=== PATIENT | female | born 1970 | race Caucasian/White ===

== ENCOUNTER 2020-03-21 17:49 | Emergency (ER) | payer OTHER, SELFPAY ==
--- NOTE | ~2020-03-21 | CT_ITS ---
EXAMINATION: CT lumbar spine wo con DATE: 03/21/2020 18:54 INDICATION: Low back pain post fall TECHNIQUE: Computed tomography (CT) of the lumbar spine was performed without intravenous contrast. A utomated exposure control and iterative reconstruction technique were employed. The dose-length produ ct was 1282.32 mGy-cm. COMPARISON: None FINDINGS: There are transitional thoracolumbar and lumbosacral segments. For purposes of this report the thorac olumbar segment will be designated L1 with small right-sided hypoplastic riblet and with an unfused l eft-sided transverse process. There The transitional lumbosacral segment will be designated S1 with a rudimentary S1-S2 disc space. There are 4 intervening nonrib-bearing lumbar segments L2-L5. 4 mm anterolisthesis L5 on S1 with mild disc height loss and severe bilateral facet osteoarthritis. T here is also a disc bulge at this level contributing to mild central canal and moderate bilateral gabriela ral foraminal stenosis. Vertebral body heights and remaining disc heights are normal. No fractures. T here is a disc bulge at L4-L5 along with moderate bilateral facet osteoarthritis and hypertrophy of t he ligamentum flavum resulting mild to moderate central canal and moderate bilateral neural foraminal stenosis at this level. Mild facet osteoarthritis without significant neural foraminal or central ca nal stenosis in the more cephalad lumbar spine. Cholecystectomy clips are seen at the gallbladder fos sa. Small amount of likely physiologic free fluid in the cul-de-sac. IMPRESSION: 1. Moderate lower lumbar spondylosis. No acute osseous abnormality. Reviewed, dictated and finalized at location A. TRICIAN YARD
--- NOTE | ~2020-03-21 | CT_ITS ---
EXAMINATION: CT brain wo con DATE: 03/21/2020 18:53 INDICATION: Blunt trauma to the head post fall with posterior head pain TECHNIQUE: Computed tomography (CT) of the head was performed without intravenous contrast. Sagittal and coronal reconstructions were performed. The mA was adjusted according to patient size. Iterative reconstruction technique was employed. The dose-length product was 605.33 mGy-cm. COMPARISON: None FINDINGS: No fracture. No acute intracranial hemorrhage, acute infarction or abnormal extra axial fluid collect ion. Ventricles are normal and symmetric. No mass/mass effect. The orbits, paranasal sinuses and mast oid air cells are normal. IMPRESSION: 1. Normal head CT. Reviewed, dictated and finalized at location A. ENCE COORDINATOR IMPRESSION: 1. Normal head CT.
--- NOTE | ~2020-03-21 | CT_ITS ---
EXAMINATION: CT cervical spine wo con DATE: 03/21/2020 18:53 INDICATION: Fall with head injury TECHNIQUE: Computed tomography (CT) of the cervical spine was performed without intravenous contrast. Automated exposure control and iterative reconstruction technique were employed. The dose-length pro duct was 483.04 mGy-cm. COMPARISON: None FINDINGS: Anterior spinal fusion with anterior plate and screw fixation extending from C4 through C7. There is fusion across the C4-C5 and C5-C6 disc spaces. The C6-C7 disc space is narrowed with irregular endpla alexa but without solid osseous bridging. There is also osseous fusion across the C4-C5 and C5-C6 facet joints which is more advanced on the right. There is straightening of the normal cervical lordosis. Unfused vertebral body heights are normal. Moderate disc height loss at C3-C4 and mild disc height lo ss at C2-C3, C7-T1 and T1-T2. No acute fractures. 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 There is b ilateral mild to moderate facet osteoarthritis of the unfused cervical and upper thoracic facet joint s. Mild to moderate neural foraminal stenosis seen at the left at C6-C7 and C7-T1. Mild neural forami nal stenosis on the left at C4-C5 and C5-C6 and on the left at C7-T1. Cervical soft tissues are unrem arkable. Visualized airway and apices of the lungs are clear. IMPRESSION: 1. C4-C7 instrumented anterior spinal fusion with mild to moderate cervical spondylosis. No acute oss eous abnormality. Reviewed, dictated and finalized at location A. DIAN IMPRESSION: 1. C4-C7 instrumented anterior spinal fusion with mild to moderate cervical spo ndylosis. No acute osseous abnormality.
--- NOTE | ~2020-03-21 | XR_ITS ---
EXAMINATION: XR knee RT 3V DATE: 03/21/2020 18:59 INDICATION: Medial right knee pain post fall TECHNIQUE: Anteroposterior, oblique and crosstable lateral views of the right knee were obtained COMPARISON: None. FINDINGS: Alignment is normal. No fracture. Joint spaces appear relatively preserved on nonweightbearing imagi ng. No joint effusion/layering lipohemarthrosis. Small enthesophyte along the anterior patella. Soft tissues are unremarkable. IMPRESSION: 1. No right knee joint effusion or acute osseous abnormality. Reviewed, dictated and finalized at location A. [facility]
[2020-03-21 18:05] VITALS: BP 122/81; PULSE 60; RESP 18; TEMP 36.7; O2SAT 98
[2020-03-21] MEDS: MORPHINE SULFATE (*CRX) 2 MG/ML INJ IV PUSH (18:33)
--- NOTE | 2020-03-21 18:54 | ED.GENADULT ---
HPI - General Adult General Chief complaint: Fall Stated complaint: fall Time Seen by Provider: 03/21/20 18:00 Source: patient Mode of arrival: EMS Limitations: no limitations History of Present Illness HPI narrative: Patient presents with chief complaint of pain to the posterior aspect of her head, neck, and low back after slipping on her steps and hitting these areas along the steps. Patient states after falling she felt pain in her head and neck and was scared to move so she laid there and called EMS. She reports fusion in her cervical spine 5 years ago.She denies LOC, vomiting, changes in vision or hearing. Related Data Allergies Allergy/AdvReac Type Severity Reaction Status Date / Time No Known Allergies Allergy Verified 03/21/20 18:33 Review of Systems Review of Systems: Narrative: CONSTITUTIONAL: Denies fever, chills, or sweats. EYES: Denies visual changes, redness, or discharge. ENT: Denies rhinorrhea, congestion, sore throat, or otalgia. CARDIOVASCULAR: Denies chest pain, palpitations, or edema. RESPIRATORY: Denies cough or dyspnea. GASTROINTESTINAL: Denies abdominal pain, nausea, vomiting, or diarrhea. GENITOURINARY: Denies dysuria or hematuria. SKIN: Denies rash or itching. MUSCULOSKELETAL: Reports head, neck, and back pain Denies myalgia, or joint pain NEUROLOGIC: Denies headache, numbness, dizziness, or weakness. PSYCHIATRIC: Denies anxiety or depression. PMFSH Social History Social History Gender identity (if verbalized by the patient): Female Exam Narrative: Exam Narrative: GENERAL: Well-appearing, well-nourished. HEAD: Normocephalic, atraumatic.No hematomas or lacerations. EYES: PERRLA and EOMI. ENT: Nares clear, no rhinorrhea or epistaxis. Mucous membranes moist. Oropharynx without tonsillar hypertrophy exudate or other lesions. NECK: Ccollar in place. Patient reports pain. No radiation of pain to upper extremities. CHEST: Clear to auscultation. No respiratory distress. No wheezes rales or rhonchi HEART: Regular rate and rhythm. Normal peripheral pulses. BACK: Tender to lumbar spine. ABDOMEN: Soft, nontender, nondistended, normal active bowel sounds. No bruises noted. EXTREMITIES: Pain to anterior medial knee. Patient refuses ROM testing due to pain. No deformity. Pulses and cap refill intact bilaterally. No edema. SKIN: Warm, dry, no rash. NEURO: No focal deficits. Alert and oriented x3. Speech appropriate. Sensation intact. No saddle parasthesia. No loss of bowel or bladder function. PSYCH: Normal mood and affect. Course Vital Signs Vital signs: Vital Signs Temperature 98.1 F 03/21/20 18:05 Pulse Rate 60 03/21/20 18:05 Respiratory Rate 18 03/21/20 18:05 Blood Pressure 122/81 03/21/20 18:05 Pulse Oximetry 98 03/21/20 18:05 Temperature 98.1 F 03/21/20 18:05 Pulse Rate 60 03/21/20 18:05 Respiratory Rate 18 03/21/20 18:05 Blood Pressure 122/81 03/21/20 18:05 Pulse Oximetry 98 03/21/20 18:05 Medical Decision Making MDM Narrative Medical decision making narrative: Patient's imaging is negative for acute injury. Patient given care precautions and strain instructions. Patient instructed to follow-up with her primary care for reevaluation and further restrictions if needed. Patient is instructed to return to emergency department if she has any emergent symptoms. Differential Diagnosis Differential Diagnosis: CVA, fracture, sprain, strain Vital Signs Vital Signs: Vital Signs Temperature 98.1 F 03/21/20 18:05 Pulse Rate 60 03/21/20 18:05 Respiratory Rate 18 03/21/20 18:05 Blood Pressure 122/81 03/21/20 18:05 Pulse Oximetry 98 03/21/20 18:05 Temperature 98.1 F 03/21/20 18:05 Pulse Rate 60 03/21/20 18:05 Respiratory Rate 18 03/21/20 18:05 Blood Pressure 122/81 03/21/20 18:05 Pulse Oximetry 98 03/21/20 18:05 Imaging Data Radiologist's impression: ITS Impressions Head CT 03/21/20 19:01 IMPRESSION: 1. N
--- NOTE | 2020-03-21 19:48 | PC.NURSE ---
Patient's c-collar removed.
[2020-03-21] MEDS: KETOROLAC 15 MG/ML VIAL (*BKC) IV PUSH (20:22)
[2020-03-21 20:28] VITALS: BP 140/70; PULSE 60; RESP 16; O2SAT 98
== END 2020-03-21 20:30 | disposition home or self-care (01) ==
PROVIDERS: Emergency Provider Emergency Medicine
DX: S16.1XXA Strain of muscle, fascia and tendon at neck level, initial encounter (principal); S39.012A Strain of muscle, fascia and tendon of lower back, initial encounter; S09.90XA Unspecified injury of head, initial encounter; S83.91XA Sprain of unspecified site of right knee, initial encounter; W10.9XXA Fall (on) (from) unspecified stairs and steps, initial encounter
CPT/HCPCS: 70450; 72125; 72131; 73562; 96374; 96375; 99284; J1885; J2270